=== PATIENT | female | born 1980 | race Two or more races ===

== ENCOUNTER → 2021-08-27 09:37 | Outpatient (BNVA) | payer OTHER, SELFPAY | PROVIDERS: PCP Nurse Practitioner Family; Visit Provider Nurse Practitioner Family | DX: M53.3 Sacrococcygeal disorders, not elsewhere classified (principal) | CPT/HCPCS: 99202 ==

== ENCOUNTER 2021-12-11 06:04 | Outpatient (REF) | payer OTHER, SELFPAY ==
--- NOTE | ~2021-12-11 | FL_ITS ---
EXAMINATION: Intraoperative fluoroscopy CLINICAL INFORMATION: Sacrococcygeal disorders COMPARISON: Lumbar spine x-rays 11/30/2018 TECHNIQUE: Intraoperative fluoroscopy was provided for use by Dr. Baer. A total of 2 images were saved to PACS. A radiologist was not present during imaging. Today's dictation is only for administrative purposes to document intraoperative fluoroscopic usage. TOTAL FLUOROSCOPIC TIME: 0.6 minutes FL/FL guidance in treatment room FINDINGS~\^^ Intraoperative fluoroscopy provided for use by Dr. Baer. Please see operative note for detailed findings.
== END 2021-12-11 06:05 | disposition home or self-care (01) ==
LOC: HO.RADIR 06:04
PROVIDERS: Visit Provider Anesthesiology
DX: M53.3 Sacrococcygeal disorders, not elsewhere classified (principal)
CPT/HCPCS: 62323; 64999; J3300

== ENCOUNTER → 2021-12-18 09:50 | Outpatient (BNVA) | payer OTHER, SELFPAY | PROVIDERS: Visit Provider Nurse Practitioner Family | DX: M53.3 Sacrococcygeal disorders, not elsewhere classified (principal) | CPT/HCPCS: 99212 ==

== ENCOUNTER → 2022-01-14 11:05 | Outpatient (BNVA) | payer OTHER, SELFPAY | PROVIDERS: Visit Provider Nurse Practitioner Family | DX: M53.3 Sacrococcygeal disorders, not elsewhere classified (principal) | CPT/HCPCS: Q3014 ==

== ENCOUNTER 2022-03-08 13:32 | Outpatient (RCR) | payer OTHER, SELFPAY ==
--- NOTE | 2022-03-08 15:01 | MHC.PT.EP ---
[facility] [place] Office [place] [facility] [place] Office [address] Nick Aguila [address] [phone] F: [phone] F: [phone] F: [phone] F: [phone] Physical Therapy Plan of Care Date of Evaluation: Date of Surgery: Diagnosis: sacrococcygeal disorders, coccydynia Assessment: 41 y/o F referred to PT with coccydynia. Initial onset of tailbone pain started about 2 years ago of insidious onset. Describes her pain as uncomfortable and very painful located distal sacrum and coccyx limiting her ability to sit for prolonged periods, sleep, and drive. She denies urinary/bowel leakage, but does report hx of constipation and recently started taking Ducusate laxatives. She has bowel movement 3x/week and [place] Stool scale #2. She reports pain with sexual activity with deeper penetration and certain positions. Examination shows decreased hip AROM, decreased lumbar extension, excessively anterior pelvic tilted posture, poor load transfer with R SLR and some breath holding, decreased hip strength and pain. Pelvic floor assessment held this session as pt would like to have it second visit. Educated pt re toileting mechanics, constipation JERALD massage, water/fiber intake for improved stool consistency, and breathing. Recommend PT 1x/week for 8 weeks to address impairments, implement HEP and optimize functional mobility Frequency and Duration: The patient will be seen 1x/week for 8 weeks Short Term Goals: 4 weeks Pt to be able to demonstrate diaphragmatic breathing to improve pressure exchange and intra abdominal load management. Pt will have 50% decrease in pain with sitting per pt report Group Home Goals: 8 weeks Pt to be independent with her final HEP for PFM in order to help maintain gains made in therapy. Pt will have no TTP with internal palpation which will help her have intercourse without pain Pt will have 75% decrease in pain with sitting per report Treatment Plan: Modalities to reduce pain, spasms and effusion. Manual therapy to restore motion and function. Therapeutic exercise to improve strength and flexibility. Neuromuscular re-education for posture and balance. Therapeutic activities to return to functional activities of daily living. Electronically signed by: Please sign and return to therapist. Thank you for your referral.
--- NOTE | 2022-04-12 14:34 | MHC.PT.DC ---
[facility] [place] Office [place] Office [place] Office [address] Nick Aguila 140 [facility] [phone] F: [phone] F: [phone] F: [phone] F: [phone] Physical Therapy Discharge Report Diagnosis: sacrococcygeal disorders, coccydynia Date of Surgery: Date of Evaluation: 03/08/22 Date of Discharge: 04/12/22 Treatments to Date: 1 Cancellations to Date: 4 No Shows to Date: 1 Discharge Status: Visit Non-compliance Discharge Summary: She is d/c to noncompliance secondary to scheduling policy and has not attended PT since initial evaluation Electronically signed by: Bushra Laura PT Please sign and return to therapist. Thank you for your referral.
== END 2022-04-12 14:36 | disposition home or self-care (01) ==
LOC: HO.PTCHIC 13:32
PROVIDERS: Visit Provider Nurse Practitioner Family
DX: M53.3 Sacrococcygeal disorders, not elsewhere classified (principal)
CPT/HCPCS: 97110; 97161

== ENCOUNTER → 2022-06-14 15:26 | Outpatient (BNVA) | payer OTHER, SELFPAY | PROVIDERS: Visit Provider Nurse Practitioner Family | DX: M53.3 Sacrococcygeal disorders, not elsewhere classified (principal) | CPT/HCPCS: 99212 ==

== ENCOUNTER → 2022-08-02 12:55 | Outpatient (BNVA) | payer OTHER, SELFPAY | PROVIDERS: Visit Provider Nurse Practitioner Family | DX: M53.3 Sacrococcygeal disorders, not elsewhere classified (principal); R52 Pain, unspecified | CPT/HCPCS: 99212 ==